=== PATIENT | female | born 1985 | race Caucasian/White ===

== ENCOUNTER 2016-05-28 17:58 | Emergency (ER) | payer MEDICAID ==
[~2016-05-28] VITALS: Ht 157.5 cm; Wt 67.7 kg
[~2016-05-28 17:58] MED LIST: AMOXICILLIN 50500 MG PO; BACTRIM DS 8001 TAB PO; BLISOVI FE 1-21 EACH PO; CEFTIN250 M1 PO; CEFTIN500 MG PO; CEPHALEXIN500 M1 PO; CIPRO 500MG TA500 MG PO; CIPRO500 MG PO; CLINDAMYCIN HC300 MG PO; CYMBALTA; CYMBALTA 60MG60 MG PO; DEPO PROVER150 MG/ML IM; DEPO-PROVER150 MG/M1 IM; DEPO-PROVER400 MG/ML IM; DEPO-SUBQ104 MG/0.6 SC; FLEXERIL 1010 MG/TAB PO; FLOMAX 0.40.4 MG/CAP PO; FLOMAX0.4 MG PO; GILDESS FE 1/201 TAB PO; IMPLANON68 MG; IMPLANON68 MG ID; IRON PILLS; LEVAQUIN 250MG250 MG PO; LEVAQUIN 5500 MG/TA1 PO; LEVBID0.375 MG PO; LORTAB 5/500 501 TAB PO; MACROBID 1100 MG/CAP PO; MACRODANTIN100 PO; MACRODANTIN50 MG/CA1 PO; MULTI VITS PO; MULTIPLE VITAMI1 CAP PO; NAPROSYN500 MG PO; NO HOME MEDICATIONS; NORCO 325 MG-51 TAB PO; NORCO 325 MG-7.1 TAB PO; OMNICEF 300MG300 MG PO; OVRAL PO; PEN-VEE K500 MG PO; PERCOCET 325 MG1 TA2 PO; PERCOCET 500 MG1 TAB PO; PHENERGAN 25 TA25 MG PO; PHENERGAN25 MG RC; POTASSIUM '99'620 MG PO; PRILOSEC 20MG20 MG PO; PROMETHAZINE12.5 M5 PO; PYRIDIATE200 MG PO; PYRIDIUM200 M1 PO; ROXICODONE 55 MG/TAB PO; SEPTRA DS 8001 TAB PO; TENORMIN 5050 MG/TAB PO; TYLENOL W/COD1 UDTAB PO; ULTRAM 50MG TAB50 MG PO; UROCIT-K 5540 MG/TAB PO; VICODIN 5/5001 UDTAB PO; ZITHROMAX TRI-500 MG PO; ZOFRAN 4MG T4 MG/TAB PO; ZOFRAN ODT4 MG PO; ZOFRAN8 MG PO; [UNRECOGNIZED DRUG - OTHER] PO
[2016-05-28 18:01] VITALS: TEMP 97.5
[2016-05-28] MEDS ORDERED: BLISOVI FE 1-21 EACH PO (18:05)
[2016-05-28 18:46] LABS: BASO # 0.1 (0.0-0.2); BASO % 0.4 % (0.0-2.0); EOS # 0.2 (0.0-0.7); EOS % 1.3 % (0-4.0); GRAN # 10.6 (1.4-6.5); GRAN % 64.3 % (42.2-75.2); HEMATOCRIT 44.4 % (37.0-47.0); HEMOGLOBIN 15.3 g/dl (12.5-16.0); LYMPH # 4.5 (1.2-3.4); LYMPH % 27.1 % (20.0-51.0); MEAN CELL VOLUME 92 fl (80.0-100.0); MEAN CORPUSCULAR HEMOGLOBIN 32 pg (27.0-31.0); MEAN CORPUSCULAR HGB CONC 35 g/dl (33.0-37.0); MEAN PLATELET VOLUME 9.7 fl (7.4-10.4); MONO # 1.1 (0.1-0.6); MONO % 6.4 % (1.7-9.3); PLATELET COUNT 324 K/mm3 (130-400); RED BLOOD COUNT 4.82 M/mm3 (4.10-5.30); WHITE BLOOD COUNT 16.5 K/mm3 (4.8-10.8)
[2016-05-28 18:56] LABS: ADJUSTED CALCIUM 9.7 mg/dL (8.4-10.2); ALBUMIN 4.1 gm/dL (3.5-5.0); CALCIUM 9.8 mg/dL (8.4-10.2); CREATININE, serum 1.28 mg/dL (0.52-1.25); POTASSIUM 4.1 mmol/L (3.4-5.0)
[2016-05-28 19:06] LABS: PH 6 (5-8); URINE APPEARANCE Hazy; URINE BACTERIA None Seen /hpf; URINE BILIRUBIN Negative (NEGATIVE); URINE BLOOD Negative (NEGATIVE); URINE COLOR Amber; URINE GLUCOSE Negative (NEGATIVE); URINE KETONE 1+ (NEGATIVE); URINE RBC 0-2 /hpf
[2016-05-28] MEDS ORDERED: NORCO 325 MG-51 TAB PO (19:25)
[2016-05-28] MEDS ORDERED: ZOFRAN 4MG T4 MG/TAB PO (19:25)
[2016-05-28] MEDS ORDERED: OMNICEF 300MG300 MG PO (19:59)
[2016-05-28 20:55] VITALS: BP 156/99; PULSE 75
== END 2016-05-28 20:55 | disposition home or self-care (01) ==
LOC: COL.ER 17:58
PROVIDERS: Emergency Medicine
DX: N20.1 Calculus of ureter (principal); Z87.442 Personal history of urinary calculi
CPT/HCPCS: J0696; J1170; J1885; J2550; J7030

== ENCOUNTER 2016-08-14 15:01 | Emergency (ER) | payer MEDICAID ==
[~2016-08-14] VITALS: Ht 157.5 cm; Wt 63.6 kg
[2016-08-14 15:13] VITALS: BP 105/81; TEMP 98.3
[2016-08-14] MEDS ORDERED: ULTRAM 50MG TAB50 MG PO (16:49)
[2016-08-14 17:05] VITALS: PULSE 96
== END 2016-08-14 17:05 | disposition home or self-care (01) ==
LOC: COL.ER 15:01
DX: M54.6 Pain in thoracic spine (principal); F41.9 Anxiety disorder, unspecified; F32.9 Major depressive disorder, single episode, unspecified

== ENCOUNTER → 2018-09-28 | Outpatient (CLI) | payer MEDICAID | LOC: COL.RAD 11:59 | DX: N93.9 Abnormal uterine and vaginal bleeding, unspecified (principal) ==

== ENCOUNTER 2019-05-11 21:41 | Emergency (ER) | payer MEDICAID ==
[~2019-05-11] VITALS: Ht 157.5 cm; Wt 75.0 kg
[2019-05-11 21:47] VITALS: PULSE 90; TEMP 97.2
[2019-05-11] MEDS ORDERED: BLISOVI 24 FE1 EACH PO (21:53)
[2019-05-11] MEDS ORDERED: LEXAPRO 10MG10 MG PO (21:53)
[2019-05-11] MEDS ORDERED: TAPAZOLE5 MG PO (21:54)
[2019-05-11] MEDS ORDERED: AMOXICILLIN 50500 MG PO (22:51)
[2019-05-11 23:02] VITALS: BP 161/105
== END 2019-05-11 23:09 | disposition home or self-care (01) ==
LOC: COL.ER 21:41
DX: K02.9 Dental caries, unspecified (principal); F32.9 Major depressive disorder, single episode, unspecified; I10 Essential (primary) hypertension; F17.210 Nicotine dependence, cigarettes, uncomplicated